=== PATIENT | male | born 1935 | race Caucasian/White ===

== ENCOUNTER → 2016-12-16 | Outpatient (CLI) | payer MEDICARE, MEDICAID ==
[~2016-12-16] MED LIST: ARICEPT 5MG TAB5 MG PO; ATENOLOL50 MG PO; CIPRO 500MG TA500 MG PO; DIOVAN HCT1 TAB PO; LEVAQUIN500 MG PO; LORTAB 5/3251 TAB PO; LORTAB 5/500 501 TAB PO; MOTRIN 600MG.600 MG PO; NAMENDA XR28 MG PO; NAPROSYN 500MG500 MG PO; PROTONIX 40MG T40 MG PO; RANITIDINE HCL150 MG PO; TAMSULOSIN HYD0.4 MG PO; VALSARTAN AND H1 TA2 PO; VALSARTAN160 M1 PO; VICODIN 7.5/501 EACH PO
--- NOTE | 2016-12-16 11:01 | RADIOLOGY REPORT PS360 ---
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 There is a small hiatal hernia. The stomach and duodenum are unremarkable. No mass or ulcerative lesion is evident. There is a small diverticulum projecting off the superior portion of the transverse portion of the duodenum. Small bowel follow-through: Normal caliber. No small bowel obstruction or mucosal abnormalities. The cecum resides in the right upper quadrant as a normal variant. IMPRESSION: 1. Small hiatal hernia. 2. Duodenal diverticulum. 3. Otherwise negative upper GI with small bowel follow-through
== END ==
LOC: RAD 08:47
DX: R11.14 Bilious vomiting (principal); R10.11 Right upper quadrant pain; K21.9 Gastro-esophageal reflux disease without esophagitis

== ENCOUNTER → 2017-10-18 | Outpatient (CLI) | payer MEDICARE, MEDICAID ==
[~2017-10-18] MED LIST changes: +AMLO5TAB PO; +FLOMAX0.4 MG PO; +NAMZARIC1 ECC PO; +PERCOCET1 TAB PO; +RANITIDINE 150150 MG PO
--- NOTE | 2017-10-19 11:39 | RADIOLOGY REPORT PS360 ---
CARDIOLITE SPECT MYOCARDIAL PERFUSION SCAN, REST AND STRESS: EXERCISE STRESS [facility] REVIEW QGS EF AND WALL MOTION EVALUATION: QPS - PERFUSION EVALUATION HISTORY: SOB, HTN DOSE: 10.52 mCi technetium 99m mibi intravenously at rest followed by 32.8 mCi technetium 99m mibi following the intravenous ministration of 0.4 mg of Lexiscan. Resting blood pressure is 161/101. Stress blood pressure 160/84. FINDINGS: Ejection fraction is calculated to be 63%. Stress images reveal decreased activity in the inferior wall with little change during rest. Gated images calculated ejection fraction of 63% with normal wall motion IMPRESSION: This test is most consistent with diaphragm attenuation although clinical correlation is advised. Normal ejection fraction normal wall motion
--- NOTE | 2017-10-19 11:39 | RADIOLOGY REPORT PS360 ---
CARDIOLITE SPECT MYOCARDIAL PERFUSION SCAN, REST AND STRESS: EXERCISE STRESS [facility] [place] REVIEW QGS EF AND WALL MOTION EVALUATION: QPS - PERFUSION EVALUATION HISTORY: SOB, HTN DOSE: 10.52 mCi technetium 99m mibi intravenously at rest followed by 32.8 mCi technetium 99m mibi following the intravenous ministration of 0.4 mg of Lexiscan. Resting blood pressure is 161/101. Stress blood pressure 160/84. FINDINGS: Ejection fraction is calculated to be 63%. Stress images reveal decreased activity in the inferior wall with little change during rest. Gated images calculated ejection fraction of 63% with normal wall motion IMPRESSION: This test is most consistent with diaphragm attenuation although clinical correlation is advised. Normal ejection fraction normal wall motion
== END ==
LOC: RAD 11:38
DX: R93.1 Abnormal findings on diagnostic imaging of heart and coronary circulation (principal); I27.20 Pulmonary hypertension, unspecified; R07.9 Chest pain, unspecified; R00.1 Bradycardia, unspecified; R11.0 Nausea; Z95.0 Presence of cardiac pacemaker
CPT/HCPCS: A9502; J2785